=== PATIENT | female | born 1980 | race Caucasian/White ===

== ENCOUNTER 2017-08-07 12:27 | Inpatient (IN) | payer OTHER ==
[2017-08-07] MEDS ORDERED: Butorphanol 1 MG/ML SDV IVPUSH PRN (13:08)
[2017-08-07] MEDS ORDERED: Misoprostol 200 MCG Tab PO PRN (13:08)
[2017-08-07] MEDS ORDERED: Sodium Chloride 0.9% 10 ML Syringe FLUSH PRN (13:08)
[2017-08-07] MEDS ORDERED: Methylergonovine 0.2 MG/1 ML Amp IM PRN (13:08)
[2017-08-07] MEDS ORDERED: Sodium Chloride 0.9% 2.5 ML Syringe FLUSH PRN (13:08)
[2017-08-07] MEDS ORDERED: Nalbuphine 10 MG/1 ML Vial IVPUSH PRN (13:08)
[2017-08-07] MEDS ORDERED: Water For Irrigation,Sterile 1,000 ML Container IRR PRN (13:08)
[2017-08-07] MEDS ORDERED: Carboprost Tromethamine 250 MCG/1 ML Amp IM PRN (13:08)
[2017-08-07] MEDS ORDERED: Lidocaine 1% 50 ML MDV INJECT PRN (13:08)
[2017-08-07] MEDS ORDERED: Terbutaline 1 MG/ML SDV SUBCUT PRN (13:11)
[2017-08-07] MEDS ORDERED: Oxytocin/0.9 % Sodium Chloride 30 UNIT/500 ML BAG IV SCH ×2 (13:15)
[2017-08-07] MEDS: Lactated Ringers 1,000 ML IV SCH ×2 (13:47→17:47)
[2017-08-07] MEDS ORDERED: Ropivacaine HCl/PF 100 ML ONE (17:23)
[2017-08-07] MEDS ORDERED: fentaNYL 100 MCG/2 ML SDV ONE (17:23)
--- NOTE | 2017-08-07 17:52 | PCM.PREANE ---
Preanesthetic Assessment - Anesthesia/Transfusion/Family Hx Anesthesia History: Prior Anesthesia Without Reaction - Review of Systems General: No Symptoms Pulmonary: No Symptoms Cardiovascular: No Symptoms Gastrointestinal: No Symptoms Neurological: No Symptoms Other: Reports: None - Physical Assessment ASA Class: 2 Mental Status: Alert & Oriented x3 Airway Class: Mallampati = 2 Dentition: Reports: Normal Dentition Thyro-Mental Finger Breadths: 3 Mouth Opening Finger Breadths: 3 ROM/Head Extension: Full Lungs: Clear to Auscultation, Normal Respiratory Effort Cardiovascular: Regular Rate, Regular Rhythm - Lab Values: Laboratory Last Values WBC 7.63 K/uL (4.0-11.0) 08/07/17 13: RBC 4.29 M/uL (4.30-5.90) L 08/07/17 13: Hgb 12.0 g/dL (12.0-16.0) 08/07/17 13:26 Hct 36.3 % (36.0-46.0) 08/07/17 13: MCV 84.6 fL (80.0-98.0) 08/07/17 13:26 MCH 28.0 pg (27.0-32.0) 08/07/17 13: MCHC 33.1 g/dL (31.0-37.0) 08/07/17 13:26 RDW Std Deviation 45.2 fl (28.0-62.0) 08/07/17 13:26 RDW Coeff of Peyman 15 % (11.0-15.0) 08/07/17 13:26 Plt Count 137 K/uL (150-400) L 08/07/17 13:26 MPV 10.20 fL (7.40-12.00) 08/07/17 13:26 Nucleated RBC % 0.0 /100WBC 08/07/17 13:26 Nucleated RBCs # 0 K/uL 08/07/17 13:26 POC Glucose 58 mg/dL (60-110) L 08/07/17 16:30 Blood Type O POSITIVE 08/07/17 13:26 Antibody Screen NEGATIVE 08/07/17 13:26 - Allergies Allergies/Adverse Reactions: Allergies Allergy/AdvReac Type Severity Reaction Status Date / Time No Known Allergies Allergy Verified 10/24/15 08:11 - Acknowledgements Anesthesia Type Planned: Epidural Pt an Appropriate Candidate for the Planned Anesthesia: Yes Alternatives and Risks of Anesthesia Discussed w Pt/Guardian: Yes Pt/Guardian Understands and Agrees with Anesthesia Plan: Yes PreAnesthesia Questionnaire HEENT History: Reports: None Cardiovascular History: Reports: None Respiratory History: Reports: None Gastrointestinal History: Reports: GERD, Irritable Bowel Syndrome Genitourinary History: Reports: None MEETING FACILITATOR History: Reports: : 5 Para: 3 LMP (Approximate): Musculoskeletal History: Reports: None Neurological History: Reports: None Psychiatric History: Reports: Anxiety, Depression Endocrine/Metabolic History: Reports: Obesity/BMI 30+ Hematologic History: Reports: None Immunologic History: Reports: None Oncologic (Cancer) History: Reports: None Dermatologic History: Reports: None - Infectious Disease History Infectious Disease History: Reports: Chicken Pox - Past Surgical History GI Surgical History: Reports: Cholecystectomy - SUBSTANCE USE Smoking Status *Q: Never Smoker Second Hand Smoke Exposure: No Recreational Drug Use History: No - HOME MEDS Home Medications: Home Meds Gerd Med 10/24/15 [History] buPROPion [Wellbutrin] 0 mg PO DAILY 10/24/15 [History] - CURRENT (IN HOUSE) MEDS Current Meds: Current Medications Butorphanol Tartrate (Stadol) 1 mg IVPUSH Q1H PRN PRN Reason: Pain Carboprost Tromethamine (Hemabate Ds) 250 mcg IM ASDIRECTED PRN PRN Reason: Post Hemorrhage Lactated Ringer's (Ringers, Lactated) 1,000 mls @ 150 mls/hr IV ASDIRECTED TERRANCE Last Admin: 08/07/17 17:47 Dose: 999 mls/hr Oxytocin/Sodium Chloride (Oxytocin 30 Unit/500 Ml-Ns) 30 unit in 500 mls @ 999 mls/hr IV TITRATE TERRANCE Oxytocin/Sodium Chloride (Oxytocin 30 Unit/500 Ml-Ns) 30 unit in 500 mls @ 2 mls/hr IV TITRATE TERRANCE; 2 MUNITS/MIN PRN Reason: Protocol Last Titration: 08/07/17 16:15 Dose: 4 munits/min, 4 mls/hr Lidocaine HCl (Xylocaine 1%) 50 ml INJECT .ONCE PRN PRN Reason: Laceration repair Methylergonovine Maleate (Methergine) 0.2 mg IM ASDIRECTED PRN PRN Reason: Post Hemorrhage Misoprostol (Cytotec) 200 mcg PO .ONCE PRN PRN Reason: Post Hemorrhage Nalbuphine HCl (Nubain) 10 mg IVPUSH Q1H PRN PRN Reason: Pain (severe 7-10) Sodium Chloride (Saline Flush) 10 ml FLUSH ASDIRECTED PRN PRN Reason: Keep Vein Open Sodium Chloride (Saline Flush) 2.5 ml FLUSH ASDIRECTED PRN PRN Reason: Keep Vein Open Sterile Water (Sterile Water For Irrigation) 1,000 ml IRR ASDIRECTED PRN PRN Reason: delivery Terbutaline Sulfate (Brethine) 0.25 mg SUBCUT ASDIRECTED PRN PRN Reason: Tacysystole Discontinued Medications Fentanyl (Sublimaze) Confirm Administered Dose 100 mcg .ROUTE .STK-MED ONE Stop: 08/07/17 17:24 Ropivacaine (Naropin 0.2%) Confirm Administered Dose 100 mls @ as directed .ROUTE .STK-MED ONE Stop: 08/07/17 17:24
[2017-08-08] MEDS ORDERED: Ondansetron 4 MG/2 ML SDV ONE ×2 (00:19→05:43)
[2017-08-08] MEDS ORDERED: Ondansetron 4 MG/2 ML SDV IVPUSH ONE (00:21)
[2017-08-08] MEDS ORDERED: Ropivacaine HCl/PF 100 ML ONE (01:56)
[2017-08-08] MEDS ORDERED: Bupivacaine 0.25% 10 ML SDV ONE (01:59)
[2017-08-08] MEDS ORDERED: Bupivacaine 0.5% 10 ML SDV ONE (05:29)
[2017-08-08] MEDS: Lactated Ringers 1,000 ML IV SCH ×3 (05:33→16:33)
[2017-08-08] MEDS ORDERED: Oxytocin 10 Units/1 ML SDV ONE (05:43)
[2017-08-08] MEDS ORDERED: Morphine PF 10 MG/10 ML SDV ONE (05:43)
[2017-08-08] MEDS ORDERED: Metoclopramide 10 MG/2 ML SDV ONE (05:46)
[2017-08-08] MEDS ORDERED: ePHEDrine 50 MG/ML SDV ONE (05:49)
[2017-08-08] MEDS ORDERED: fentaNYL 100 MCG/2 ML SDV ONE (05:54)
[2017-08-08] MEDS ORDERED: Phenylephrine/Normal Saline 100 MCG/ML 10 ML Syringe ONE (06:06)
[2017-08-08] MEDS ORDERED: Octyl 2-Cyanoacrylate 1 Tube TOP ONE (06:31)
--- NOTE | 2017-08-08 06:39 | PCM.OPNOTE ---
- General Post-Op/Procedure Note Date of Surgery/Procedure: 08/08/17 Operative Procedure(s): primary low transverse Findings: liveborn male 05/22 3670 grams, normal pelvis Pre Op Diagnosis: 39 weeks gestational diabetes A1, arrest of descent Post-Op Diagnosis: Same Anesthesia Technique: Epidural Primary Surgeon: Erinn Barton Anesthesia Provider: Colby Sweet Change House Attendant: Haresh Chavis Fluid Replacement, Intraop: 2,000 EBL in mLs: 1,000 Complications: None Known Condition: Good
[2017-08-08] MEDS ORDERED: Bisacodyl 10 MG Supp RECTAL PRN (06:40)
[2017-08-08] MEDS ORDERED: Ondansetron 4 MG/2 ML SDV IVPUSH PRN (06:40)
[2017-08-08] MEDS ORDERED: diphenhydrAMINE 50 MG/ML SDV IVPUSH PRN ×2 (06:40→06:48)
[2017-08-08] MEDS ORDERED: Acetaminophen/oxyCODONE 325-5 MG Tab PO PRN (06:40)
[2017-08-08] MEDS ORDERED: Lanolin 100% Cream 7 GM Tube TOP PRN (06:40)
[2017-08-08] MEDS ORDERED: Nalbuphine 10 MG/1 ML Vial IVPUSH PRN (06:48)
[2017-08-08] MEDS ORDERED: Naloxone 0.4 MG/ML Syringe IVPUSH PRN (06:48)
[2017-08-08] MEDS ORDERED: fentaNYL 100 MCG/2 ML SDV IVPUSH PRN (06:49)
--- NOTE | 2017-08-08 07:32 | OR ---
SURGEON: Erinn Barton M.D. DATE OF PROCEDURE: 08/08/2017 PREOPERATIVE DIAGNOSES: Thirty-nine week intrauterine , gestational diabetes, arrest of descent. POSTOPERATIVE DIAGNOSES: Thirty-nine week intrauterine , gestational diabetes, arrest of descent. PROCEDURE: Primary low transverse section. ANESTHESIA: Epidural. EBL: 1000 mL. FLUIDS: 2000 mL crystalloid. FINDINGS: Liveborn male, score 8 and 9, weighing 3670 g. Head was deflexed, transverse presentation with arrest of descent. Normal appearing uterus, tubes, and ovaries were identified. COMPLICATIONS: None known. DISPOSITION: Stable to recovery. BRIEF HISTORY: This is a 36-year-old female, she is G5, P 3-0-1-3. She presents for induction of labor due to advanced maternal age and gestational diabetes, diet controlled. Estimated weight of 3700 g. Otherwise, uncomplicated care. She presented to Labor and Delivery. She was started on Pitocin, when she was 3 cm dilated. The artificial rupture of membranes was performed. She received an epidural for pain control prior to rupture of membranes. Clear fluid was noted. She had category 1 heart tones throughout labor with some episodes of category 2 related to either early or late decelerations but always with good variability. She progressed to complete and pushed over a two-hour time period. Over the two-hour time period of pushing, there was no descent of the head. On examination, the head was noted to be deflexed and was felt to be occiput posterior. Discussion was held regarding continued attempt at pushing versus proceeding with a primary low transverse delivery with risks including bleeding, infection, injury to bowel, bladder, blood vessels, ureters, other organs, risk of thromboembolic event. Understanding all these risks, she does desire to proceed with a primary low transverse delivery. DESCRIPTION OF PROCEDURE: With the patient in left tilt position under adequate epidural analgesia, the abdomen was prepped with chlorhexidine and draped in the usual fashion for abdominal surgery. SCDs were in place. Rodriguez catheter had been placed. An appropriate time-out was held. After documentation of adequate analgesia, a transverse curvilinear incision was made 2 cm cephalad from the pubic symphysis and carried through the subcutaneous tissue to the fascia which was scored transversely in the midline. The fascial incision was extended laterally using curved Brunner scissors. The fascia was elevated from the underlying rectus muscle using sharp and blunt dissection. The rectus muscles were bluntly in the midline. A finger was used to enter the peritoneal cavity. This incision was extended using blunt dissection. The Gerry O retractor was placed into the abdominal cavity, and the visceroperitoneum over the lower uterine segment was incised to develop an adequate bladder flap. A transverse curvilinear incision was made over the lower uterine segment with a scalpel and a finger was used to enter the amniotic cavity. Clear fluid was noted. The head was elevated from the pelvis and delivered via the uterine incision. The remainder of the 's body was delivered without any difficulty. The cord was clamped x2 and cut, and the infant was handed to the nurse in attendance at delivery. The was a liveborn male, score 8 and 9, weighing 3670 g. Cord blood was collected for cord ABGs as well as routine cord blood sampling. The placenta was removed by manual extraction. The uterus was cleaned with a dry laparotomy tape. The area was bleeding from the left uterine artery that was controlled with [id number] suture of 0 Polysorb. The uterine incision was then closed with a running lock suture of 0 Polysorb followed by an imbricating layer of 0 Polysorb. Three [id number] sutures were placed across the incision line for complete hemostasis. There was also an area of bleeding from a venous structure on the bladder peritoneum which was carefully isolated and tagged with a hemostat and then cauterized. The uterus and uterine incision were carefully inspected. They were completely hemostatic. The pericolic gutters and posterior cul-de-sac were cleaned with wet laparotomy tape. The tubes and ovaries were inspected and were normal. The incision was again carefully inspected and was hemostatic. The Gerry O retractor was removed. Final inspection revealed one additional area of bleeding in the midline which was controlled with [id number] suture. Further inspection revealed the uterine incision to be completely hemostatic with particular attention to the left lateral aspect. The rectus muscle and peritoneum were then loosely approximated in the midline using a running mattress suture of 0 Polysorb. The posterior aspect of the fascia was inspected and was hemostatic. The fascial incision was closed with a running suture of 0 Polysorb. Subcutaneous tissue was irrigated. Any areas of bleeding that were noted were cauterized. The skin was closed with a running subcuticular suture of 2-0 Polysorb and skin glue. Final sponge, needle, instrument counts were reported as correct. There were no known complications. The patient was transferred to recovery in good condition. MAKSIM PADGETT /[id number]
[2017-08-08] MEDS ORDERED: Acetaminophen 1,000 MG in Premix Bag 1 BAG IV ONE (10:35)
[2017-08-08] MEDS: Ketorolac 30 MG/ML SDV IVPUSH PRN (16:54)
[2017-08-08] MEDS: Docusate Sodium 100 MG Cap PO SCH ×2 (20:08→21:17)
[2017-08-09] MEDS: Ketorolac 30 MG/ML SDV IVPUSH PRN (04:06)
[2017-08-09 05:41] LABS: CHLORIDE,CL 106 mmol/L (98-110); SODIUM,NA 133 mmol/L (136-146)
--- NOTE | 2017-08-09 08:15 | PCM.PNPP ---
<Anh Molina - Last Filed: 08/09/17 08:26> - General Info Date of Service: 08/09/17 Functional Status: Reports: Pain Controlled, Tolerating Diet, Ambulating, Urinating (catheter removed this morning) - Review of Systems General: Denies: Fever, Fatigue, Other Pulmonary: Denies: Shortness of Breath, Pleuritic Chest Pain, Cough Cardiovascular: Denies: Chest Pain, Palpitations, Dyspnea on Exertion Gastrointestinal: Denies: Abdominal Pain Genitourinary: Denies: Dysuria Psychiatric: Reports: No Symptoms - General Info Date of Service: 08/09/17 - Patient Data Vital Signs - Most Recent: Last Vital Signs Temp 37.0 C 08/09/17 00:00 Pulse 75 08/09/17 04:11 Resp 16 08/09/17 06:20 BP 107/62 08/09/17 04:11 Pulse Ox 100 08/09/17 06:20 Weight - Most Recent: 85.729 kg I&O - Last 24 Hours: Intake & Output 08/08/17 08/09/17 08/09/17 22:59 06:59 14:59 Output Total 950 450 Balance -950 -450 Lab Results - Last 24 Hours: Laboratory Results - last 24 hr 08/08/17 08/09/17 08/09/17 Range/Units 10:05 05:05 05:05 Hgb 7.8 L (12.0-16.0) g/dL Hct 23.6 L (36.0-46.0) % Sodium 133 L (136-146) mmol/L Potassium 3.9 (3.5-5.1) mmol/L Chloride 106 (98-110) mmol/L Carbon Dioxide 21 (21-31) mmol/L BUN 11 (6.0-23.0) mg/dL Creatinine 0.6 (0.6-1.5) mg/dL Est Cr Clr Drug Dosing 113.01 mL/min Estimated GFR (MDRD) > 60.0 ml/min Glucose 96 (60-110) mg/dL POC Glucose 191 H (60-110) mg/dL Calcium 8.3 L (8.8-10.8) mg/dL Med Orders - Current: Current Medications Bisacodyl (Dulcolax) 10 mg RECTAL .ONCE PRN PRN Reason: Constipation Diphenhydramine HCl (Benadryl) 25 mg IVPUSH Q6H PRN PRN Reason: Itching or Nausea Docusate Sodium (Colace) 100 mg PO BID [facility] Last Admin: 08/08/17 21:17 Dose: 100 mg Emollient Ointment (Lansinoh Hpa) 0 gm TOP ASDIRECTED PRN PRN Reason: Sore Nipples Lactated Ringer's (Ringers, Lactated) 1,000 mls @ 125 mls/hr IV ASDIRECTED [facility] Last Admin: 08/08/17 16:33 Dose: 125 mls/hr Ibuprofen (Motrin) 800 mg PO Q8H PRN PRN Reason: mild pain or fever Ketorolac Tromethamine (Toradol) 30 mg IVPUSH Q6H PRN PRN Reason: Pain Stop: 08/09/17 16:00 Last Admin: 08/09/17 04:06 Dose: 30 mg Ondansetron HCl (Zofran) 4 mg IVPUSH Q4H PRN PRN Reason: Nausea/Vomiting Oxycodone/Acetaminophen (Percocet 325-5 Mg) 1 tab PO Q4H PRN PRN Reason: Pain (moderate 4-6) Oxycodone/Acetaminophen (Percocet 325-5 Mg) 2 tab PO Q4H PRN PRN Reason: Pain (moderate 4-6) Discontinued Medications Bupivacaine HCl (Sensorcaine-Mpf 0.25%) Confirm Administered Dose 10 ml .ROUTE .STK-MED ONE Stop: 08/08/17 02:00 Bupivacaine HCl (Sensorcaine-Mpf 0.5%) Confirm Administered Dose 20 ml .ROUTE .STK-MED ONE Stop: 08/08/17 05:30 Butorphanol Tartrate (Stadol) 1 mg IVPUSH Q1H PRN PRN Reason: Pain Carboprost Tromethamine (Hemabate Ds) 250 mcg IM ASDIRECTED PRN PRN Reason: Post Hemorrhage Diphenhydramine HCl (Benadryl) 25 mg IVPUSH Q4H PRN PRN Reason: Itching Stop: 08/09/17 06:48 Ephedrine Sulfate (Ephedrine Sulfate) Confirm Administered Dose 50 mg .ROUTE .STK-MED ONE Stop: 08/08/17 05:50 Fentanyl (Sublimaze) Confirm Administered Dose 100 mcg .ROUTE .STK-MED ONE Stop: 08/07/17 17:24 Fentanyl (Sublimaze) Confirm Administered Dose 100 mcg .ROUTE .STK-MED ONE Stop: 08/08/17 05:55 Fentanyl (Sublimaze) 50 mcg IVPUSH Q45M PRN PRN Reason: Pain (severe 7-10) Stop: 08/09/17 06:49 Lactated Ringer's (Ringers, Lactated) 1,000 mls @ 150 mls/hr IV ASDIRECTED TERRANCE Last Admin: 08/08/17 05:33 Dose: 999 mls/hr Oxytocin/Sodium Chloride (Oxytocin 30 Unit/500 Ml-Ns) 30 unit in 500 mls @ 999 mls/hr IV TITRATE TERRANCE Oxytocin/Sodium Chloride (Oxytocin 30 Unit/500 Ml-Ns) 30 unit in 500 mls @ 2 mls/hr IV TITRATE TERRANCE; 2 MUNITS/MIN PRN Reason: Protocol Last Titration: 08/08/17 04:25 Dose: 20 munits/min, 20 mls/hr Ropivacaine (Naropin 0.2%) Confirm Administered Dose 100 mls @ as directed .ROUTE .STK-MED ONE Stop: 08/07/17 17:24 Ropivacaine (Naropin 0.2%) Confirm Administered Dose 100 mls @ as directed .ROUTE .STK-MED ONE Stop: 08/08/17 01:57 Acetaminophen 1,000 mg/ Premix 100 mls @ 400 mls/hr IV NOW ONE Stop: 08/08/17 10:49 Last Admin: 08/08/17 10:43 Dose: 400 mls/hr Lidocaine HCl (Xylocaine 1%) 50 ml INJECT .ONCE PRN PRN Reason: Laceration repair Methylergonovine Maleate (Methergine) 0.2 mg IM ASDIRECTED PRN PRN Reason: Post Hemorrhage Metoclopramide HCl (Reglan) Confirm Administered Dose 10 mg .ROUTE .STK-MED ONE Stop: 08/08/17 05:47 Misoprostol (Cytotec) 200 mcg PO .ONCE PRN PRN Reason: Post Hemorrhage Morphine Sulfate (Duramorph Pf) Confirm Administered Dose 10 mg .ROUTE .STK-MED ONE Stop: 08/08/17 05:44 Nalbuphine HCl (Nubain) 10 mg IVPUSH Q1H PRN PRN Reason: Pain (severe 7-10) Nalbuphine HCl (Nubain) 5 mg IVPUSH Q3H PRN PRN Reason: Pruritis Stop: 08/09/17 06:48 Naloxone HCl (Narcan) 0.1 mg IVPUSH ONETIME PRN PRN Reason: Respiratory Depression Stop: 08/09/17 06:48 Ondansetron HCl (Zofran) Confirm Administered Dose 4 mg .ROUTE .STK-MED ONE Stop: 08/08/17 00:20 Ondansetron HCl (Zofran) 4 mg IVPUSH ONETIME ONE Stop: 08/08/17 00:22 Last Admin: 08/08/17 00:23 Dose: 4 mg Ondansetron HCl (Zofran) Confirm Administered Dose 4 mg .ROUTE .STK-MED ONE Stop: 08/08/17 05:44 Oxytocin (Pitocin) Confirm Administered Dose 20 unit .ROUTE .STK-MED ONE Stop: 08/08/17 05:44 Phenylephrine HCl (Phenylephrine In Ns 100 Mcg/Ml) Confirm Administered Dose 1 mg .ROUTE .STK-MED ONE Stop: 08/08/17 06:07 Sodium Chloride (Saline Flush) 10 ml FLUSH ASDIRECTED PRN PRN Reason: Keep Vein Open Sodium Chloride (Saline Flush) 2.5 ml FLUSH ASDIRECTED PRN PRN Reason: Keep Vein Open Sterile Water (Sterile Water For Irrigation) 1,000 ml IRR ASDIRECTED PRN PRN Reason: delivery Terbutaline Sulfate (Brethine) 0.25 mg SUBCUT ASDIRECTED PRN PRN Reason: Tacysystole - Interaction Infant Disposition, : [place] in Room with Family Interaction: Holding Infant Infant Feeding: Attempted ; Nursed Fair/Poor Support Person: - Recovery Exam Fundal Tone: Firm Fundal Level: At Umbilicus Fundal Placement: Midline Lochia Amount: Scant Lochia Color: Rubra/Red Perineum Description: Intact, Minimal Bruising/Swelling Bladder Status: Indwelling Catheter in Place Urinary Elimination: Indwelling Catheter - Exam General: Alert, Oriented Lungs: Clear to Auscultation, Normal Respiratory Effort Cardiovascular: Regular Rate, Regular Rhythm GI/Abdominal Exam: Normal Bowel Sounds, Soft, Non-Tender, No Organomegaly, No Distention, No Mass, Pelvis Stable Extremities: Normal Inspection, Normal Range of Motion, Non-Tender, Normal Capillary Refill, Pedal Edema (trace) - Problem List & Annotations (1) delivery delivered SNOMED Code(s): 305318078 Code(s): O82 - ENCOUNTER FOR DELIVERY WITHOUT INDICATION Status: Acute Current Visit: Yes - Problem List Review Problem List Initiated/Reviewed/Updated: Yes - Assessment Assessment:: POD#1 from [facility] due to arrest of decent. Minimal pain and lochia. Breast feeding is going well. Encouraged to shower and ambulate halls. Anticipate discharge home tomorrow. - Plan Plan:: Continue routine post-op cares. <Erinn Barton - Last Filed: 08/09/17 16:25> - Patient Data Vital Signs - Most Recent: Last Vital Signs Temp 36.8 C 08/09/17 16:00 Pulse 95 08/09/17 16:00 Resp 18 08/09/17 16:00 BP 111/57 L 08/09/17 16:00 Pulse Ox 97 08/09/17 16:00 I&O - Last 24 Hours: Intake & Output 08/09/17 08/09/17 08/09/17 06:59 14:59 22:59 Output Total 450 250 Balance -450 -250 Lab Results - Last 24 Hours: Laboratory Results - last 24 hr 08/09/17 08/09/17 Range/Units 05:05 05:05 Hgb 7.8 L (12.0-16.0) g/dL Hct 23.6 L (36.0-46.0) % Sodium 133 L (136-146) mmol/L Potassium 3.9 (3.5-5.1) mmol/L Chloride 106 (98-110) mmol/L Carbon Dioxide 21 (21-31) mmol/L BUN 11 (6.0-23.0) mg/dL Creatinine 0.6 (0.6-1.5) mg/dL Est Cr Clr Drug Dosing 113.01 mL/min Estimated GFR (MDRD) > 60.0 ml/min Glucose 96 (60-110) mg/dL Calcium 8.3 L (8.8-10.8) mg/dL Med Orders - Current: Current Medications Bisacodyl (Dulcolax) 10 mg RECTAL .ONCE PRN PRN Reason: Constipation Diphenhydramine HCl (Benadryl) 25 mg IVPUSH Q6H PRN PRN Reason: Itching or Nausea Docusate Sodium (Colace) 100 mg PO BID [facility] Last Admin: 08/09/17 08:41 Dose: 100 mg Emollient Ointment (Lansinoh Hpa) 0 gm TOP ASDIRECTED PRN PRN Reason: Sore Nipples Lactated Ringer's (Ringers, Lactated) 1,000 mls @ 125 mls/hr IV ASDIRECTED [facility] Last Admin: 08/08/17 16:33 Dose: 125 mls/hr Ibuprofen (Motrin) 800 mg PO Q8H PRN PRN Reason: mild pain or fever Last Admin: 08/09/17 12:46 Dose: 800 mg Ondansetron HCl (Zofran) 4 mg IVPUSH Q4H PRN PRN Reason: Nausea/Vomiting Oxycodone/Acetaminophen (Percocet 325-5 Mg) 1 tab PO Q4H PRN PRN Reason: Pain (moderate 4-6) Last Admin: 08/09/17 14:30 Dose: 1 tab Oxycodone/Acetaminophen (Percocet 325-5 Mg) 2 tab PO Q4H PRN PRN Reason: Pain (moderate 4-6) Discontinued Medications Bupivacaine HCl (Sensorcaine-Mpf 0.25%) Confirm Administered Dose 10 ml .ROUTE .STK-MED ONE Stop: 08/08/17 02:00 Bupivacaine HCl (Sensorcaine-Mpf 0.5%) Confirm Administered Dose 20 ml .ROUTE .STK-MED ONE Stop: 08/08/17 05:30 Butorphanol Tartrate (Stadol) 1 mg IVPUSH Q1H PRN PRN Reason: Pain Carboprost Tromethamine (Hemabate Ds) 250 mcg IM ASDIRECTED PRN PRN Reason: Post Hemorrhage Diphenhydramine HCl (Benadryl) 25 mg IVPUSH Q4H PRN PRN Reason: Itching Stop: 08/09/17 06:48 Ephedrine Sulfate (Ephedrine Sulfate) Confirm Administered Dose 50 mg .ROUTE .STK-MED ONE Stop: 08/08/17 05:50 Fentanyl (Sublimaze) Confirm Administered Dose 100 mcg .ROUTE .STK-MED ONE Stop: 08/07/17 17:24 Fentanyl (Sublimaze) Confirm Administered Dose 100 mcg .ROUTE .STK-MED ONE Stop: 08/08/17 05:55 Fentanyl (Sublimaze) 50 mcg IVPUSH Q45M PRN PRN Reason: Pain (severe 7-10) Stop: 08/09/17 06:49 Lactated Ringer's (Ringers, Lactated) 1,000 mls @ 150 mls/hr IV ASDIRECTED TERRANCE Last Admin: 08/08/17 05:33 Dose: 999 mls/hr Oxytocin/Sodium Chloride (Oxytocin 30 Unit/500 Ml-Ns) 30 unit in 500 mls @ 999 mls/hr IV TITRATE TERRANCE Oxytocin/Sodium Chloride (Oxytocin 30 Unit/500 Ml-Ns) 30 unit in 500 mls @ 2 mls/hr IV TITRATE TERRANCE; 2 MUNITS/MIN PRN Reason: Protocol Last Titration: 08/08/17 04:25 Dose: 20 munits/min, 20 mls/hr Ropivacaine (Naropin 0.2%) Confirm Administered Dose 100 mls @ as directed .ROUTE .STK-MED ONE Stop: 08/07/17 17:24 Ropivacaine (Naropin 0.2%) Confirm Administered Dose 100 mls @ as directed .ROUTE .STK-MED ONE Stop: 08/08/17 01:57 Acetaminophen 1,000 mg/ Premix 100 mls @ 400 mls/hr IV NOW ONE Stop: 08/08/17 10:49 Last Admin: 08/08/17 10:43 Dose: 400 mls/hr Ketorolac Tromethamine (Toradol) 30 mg IVPUSH Q6H PRN PRN Reason: Pain Stop: 08/09/17 16:00 Last Admin: 08/09/17 04:06 Dose: 30 mg Lidocaine HCl (Xylocaine 1%) 50 ml INJECT .ONCE PRN PRN Reason: Laceration repair Methylergonovine Maleate (Methergine) 0.2 mg IM ASDIRECTED PRN PRN Reason: Post Hemorrhage Metoclopramide HCl (Reglan) Confirm Administered Dose 10 mg .ROUTE .STK-MED ONE Stop: 08/08/17 05:47 Misoprostol (Cytotec) 200 mcg PO .ONCE PRN PRN Reason: Post Hemorrhage Morphine Sulfate (Duramorph Pf) Confirm Administered Dose 10 mg .ROUTE .STK-MED ONE Stop: 08/08/17 05:44 Nalbuphine HCl (Nubain) 10 mg IVPUSH Q1H PRN PRN Reason: Pain (severe 7-10) Nalbuphine HCl (Nubain) 5 mg IVPUSH Q3H PRN PRN Reason: Pruritis Stop: 08/09/17 06:48 Naloxone HCl (Narcan) 0.1 mg IVPUSH ONETIME PRN PRN Reason: Respiratory Depression Stop: 08/09/17 06:48 Ondansetron HCl (Zofran) Confirm Administered Dose 4 mg .ROUTE .STK-MED ONE Stop: 08/08/17 00:20 Ondansetron HCl (Zofran) 4 mg IVPUSH ONETIME ONE Stop: 08/08/17 00:22 Last Admin: 08/08/17 00:23 Dose: 4 mg Ondansetron HCl (Zofran) Confirm Administered Dose 4 mg .ROUTE .STK-MED ONE Stop: 08/08/17 05:44 Oxytocin (Pitocin) Confirm Administered Dose 20 unit .ROUTE .STK-MED ONE Stop: 08/08/17 05:44 Phenylephrine HCl (Phenylephrine In Ns 100 Mcg/Ml) Confirm Administered Dose 1 mg .ROUTE .STK-MED ONE Stop: 08/08/17 06:07 Sodium Chloride (Saline Flush) 10 ml FLUSH ASDIRECTED PRN PRN Reason: Keep Vein Open Sodium Chloride (Saline Flush) 2.5 ml FLUSH ASDIRECTED PRN PRN Reason: Keep Vein Open Sterile Water (Sterile Water For Irrigation) 1,000 ml IRR ASDIRECTED PRN PRN Reason: delivery Terbutaline Sulfate (Brethine) 0.25 mg SUBCUT ASDIRECTED PRN PRN Reason: Tacysystole - My Orders Last 24 Hours: My Active Orders 08/10/17 05:11 BMP [BASIC METABOLIC PANEL,BMP] [CHEM] AM - Plan Plan:: Patient see and examined and agree with above.
[2017-08-09] MEDS: Acetaminophen/oxyCODONE 325-5 MG Tab PO PRN ×4 (08:41→23:10)
[2017-08-09] MEDS: Docusate Sodium 100 MG Cap PO SCH ×2 (08:41→22:55)
[2017-08-09] MEDS: Ibuprofen 800 MG Tab PO PRN (12:46)
[2017-08-10] MEDS: Ibuprofen 800 MG Tab PO PRN ×2 (02:25→11:24)
[2017-08-10] MEDS: Acetaminophen/oxyCODONE 325-5 MG Tab PO PRN ×2 (04:43→08:41)
[2017-08-10 06:27] LABS: CHLORIDE,CL 109 mmol/L (98-110); SODIUM,NA 137 mmol/L (136-146)
--- NOTE | 2017-08-10 07:33 | PCM.PNPP ---
- General Info Date of Service: 08/10/17 Admission Dx/Problem (Free Text): 36yo P4014 s/p [facility] for arrest of descent, POD2 Subjective Update: Patient wants to be back on her antidepressant , she has no suicidal ideations. but radha easily. she has family support at home Functional Status: Reports: Pain Controlled, Tolerating Diet, Ambulating, Urinating - Review of Systems HEENT: Reports: No Symptoms Pulmonary: Reports: No Symptoms Cardiovascular: Reports: No Symptoms Gastrointestinal: Reports: No Symptoms Genitourinary: Reports: No Symptoms Musculoskeletal: Reports: No Symptoms Skin: Reports: No Symptoms Neurological: Reports: No Symptoms Psychiatric: Reports: No Symptoms - General Info Date of Service: 08/10/17 - Patient Data Vital Signs - Most Recent: Last Vital Signs Temp 36.8 C 08/09/17 20:00 Pulse 98 08/09/17 20:00 Resp 15 08/09/17 20:00 BP 103/61 08/09/17 20:00 Pulse Ox 97 08/09/17 20:00 Weight - Most Recent: 85.729 kg Lab Results - Last 24 Hours: Laboratory Results - last 24 hr 08/10/17 Range/Units 05:41 Sodium 137 (136-146) mmol/L Potassium 3.7 (3.5-5.1) mmol/L Chloride 109 (98-110) mmol/L Carbon Dioxide 22 (21-31) mmol/L BUN 7 (6.0-23.0) mg/dL Creatinine 0.5 L (0.6-1.5) mg/dL Est Cr Clr Drug Dosing 135.61 mL/min Estimated GFR (MDRD) > 60.0 ml/min Glucose 91 (60-110) mg/dL Calcium 8.4 L (8.8-10.8) mg/dL Med Orders - Current: Current Medications Bisacodyl (Dulcolax) 10 mg RECTAL .ONCE PRN PRN Reason: Constipation Diphenhydramine HCl (Benadryl) 25 mg IVPUSH Q6H PRN PRN Reason: Itching or Nausea Docusate Sodium (Colace) 100 mg PO BID TERRANCE Last Admin: 08/09/17 22:55 Dose: 100 mg Emollient Ointment (Lansinoh Hpa) 0 gm TOP ASDIRECTED PRN PRN Reason: Sore Nipples Lactated Ringer's (Ringers, Lactated) 1,000 mls @ 125 mls/hr IV ASDIRECTED TERRANCE Last Admin: 08/08/17 16:33 Dose: 125 mls/hr Ibuprofen (Motrin) 800 mg PO Q8H PRN PRN Reason: mild pain or fever Last Admin: 08/10/17 02:25 Dose: 800 mg Ondansetron HCl (Zofran) 4 mg IVPUSH Q4H PRN PRN Reason: Nausea/Vomiting Oxycodone/Acetaminophen (Percocet 325-5 Mg) 1 tab PO Q4H PRN PRN Reason: Pain (moderate 4-6) Last Admin: 08/10/17 04:43 Dose: 1 tab Oxycodone/Acetaminophen (Percocet 325-5 Mg) 2 tab PO Q4H PRN PRN Reason: Pain (moderate 4-6) Discontinued Medications Bupivacaine HCl (Sensorcaine-Mpf 0.25%) Confirm Administered Dose 10 ml .ROUTE .STK-MED ONE Stop: 08/08/17 02:00 Bupivacaine HCl (Sensorcaine-Mpf 0.5%) Confirm Administered Dose 20 ml .ROUTE .STK-MED ONE Stop: 08/08/17 05:30 Butorphanol Tartrate (Stadol) 1 mg IVPUSH Q1H PRN PRN Reason: Pain Carboprost Tromethamine (Hemabate Ds) 250 mcg IM ASDIRECTED PRN PRN Reason: Post Hemorrhage Diphenhydramine HCl (Benadryl) 25 mg IVPUSH Q4H PRN PRN Reason: Itching Stop: 08/09/17 06:48 Ephedrine Sulfate (Ephedrine Sulfate) Confirm Administered Dose 50 mg .ROUTE .STK-MED ONE Stop: 08/08/17 05:50 Fentanyl (Sublimaze) Confirm Administered Dose 100 mcg .ROUTE .STK-MED ONE Stop: 08/07/17 17:24 Fentanyl (Sublimaze) Confirm Administered Dose 100 mcg .ROUTE .STK-MED ONE Stop: 08/08/17 05:55 Fentanyl (Sublimaze) 50 mcg IVPUSH Q45M PRN PRN Reason: Pain (severe 7-10) Stop: 08/09/17 06:49 Lactated Ringer's (Ringers, Lactated) 1,000 mls @ 150 mls/hr IV ASDIRECTED TERRANCE Last Admin: 08/08/17 05:33 Dose: 999 mls/hr Oxytocin/Sodium Chloride (Oxytocin 30 Unit/500 Ml-Ns) 30 unit in 500 mls @ 999 mls/hr IV TITRATE TERRANCE Oxytocin/Sodium Chloride (Oxytocin 30 Unit/500 Ml-Ns) 30 unit in 500 mls @ 2 mls/hr IV TITRATE TERRANCE; 2 MUNITS/MIN PRN Reason: Protocol Last Titration: 08/08/17 04:25 Dose: 20 munits/min, 20 mls/hr Ropivacaine (Naropin 0.2%) Confirm Administered Dose 100 mls @ as directed .ROUTE .STK-MED ONE Stop: 08/07/17 17:24 Ropivacaine (Naropin 0.2%) Confirm Administered Dose 100 mls @ as directed .ROUTE .STK-MED ONE Stop: 08/08/17 01:57 Acetaminophen 1,000 mg/ Premix 100 mls @ 400 mls/hr IV NOW ONE Stop: 08/08/17 10:49 Last Admin: 08/08/17 10:43 Dose: 400 mls/hr Ketorolac Tromethamine (Toradol) 30 mg IVPUSH Q6H PRN PRN Reason: Pain Stop: 08/09/17 16:00 Last Admin: 08/09/17 04:06 Dose: 30 mg Lidocaine HCl (Xylocaine 1%) 50 ml INJECT .ONCE PRN PRN Reason: Laceration repair Methylergonovine Maleate (Methergine) 0.2 mg IM ASDIRECTED PRN PRN Reason: Post Hemorrhage Metoclopramide HCl (Reglan) Confirm Administered Dose 10 mg .ROUTE .STK-MED ONE Stop: 08/08/17 05:47 Misoprostol (Cytotec) 200 mcg PO .ONCE PRN PRN Reason: Post Hemorrhage Morphine Sulfate (Duramorph Pf) Confirm Administered Dose 10 mg .ROUTE .STK-MED ONE Stop: 08/08/17 05:44 Nalbuphine HCl (Nubain) 10 mg IVPUSH Q1H PRN PRN Reason: Pain (severe 7-10) Nalbuphine HCl (Nubain) 5 mg IVPUSH Q3H PRN PRN Reason: Pruritis Stop: 08/09/17 06:48 Naloxone HCl (Narcan) 0.1 mg IVPUSH ONETIME PRN PRN Reason: Respiratory Depression Stop: 08/09/17 06:48 Ondansetron HCl (Zofran) Confirm Administered Dose 4 mg .ROUTE .STK-MED ONE Stop: 08/08/17 00:20 Ondansetron HCl (Zofran) 4 mg IVPUSH ONETIME ONE Stop: 08/08/17 00:22 Last Admin: 08/08/17 00:23 Dose: 4 mg Ondansetron HCl (Zofran) Confirm Administered Dose 4 mg .ROUTE .STK-MED ONE Stop: 08/08/17 05:44 Oxytocin (Pitocin) Confirm Administered Dose 20 unit .ROUTE .STK-MED ONE Stop: 08/08/17 05:44 Phenylephrine HCl (Phenylephrine In Ns 100 Mcg/Ml) Confirm Administered Dose 1 mg .ROUTE .STK-MED ONE Stop: 08/08/17 06:07 Sodium Chloride (Saline Flush) 10 ml FLUSH ASDIRECTED PRN PRN Reason: Keep Vein Open Sodium Chloride (Saline Flush) 2.5 ml FLUSH ASDIRECTED PRN PRN Reason: Keep Vein Open Sterile Water (Sterile Water For Irrigation) 1,000 ml IRR ASDIRECTED PRN PRN Reason: delivery Terbutaline Sulfate (Brethine) 0.25 mg SUBCUT ASDIRECTED PRN PRN Reason: Tacysystole - Interaction Disposition, : in Room with Family Infant Interaction: Holding Infant Feeding: Attempted ; Nursed Fair/Poor Support Person: - Recovery Exam Fundal Tone: Firm Fundal Level: 1 Fingerbreadths Below Umbilicus Fundal Placement: Midline Lochia Amount: Scant Lochia Color: Rubra/Red Perineum Description: Intact, Minimal Bruising/Swelling Episiotomy/Laceration: None Bladder Status: Voiding Urinary Elimination: Voided - Exam General: Alert, Oriented Lungs: Clear to Auscultation Cardiovascular: Regular Rate, Regular Rhythm GI/Abdominal Exam: Normal Bowel Sounds, Other (pfannelstiel skin incision c/d/i) Extremities: Normal Inspection - Problem List Review Problem List Initiated/Reviewed/Updated: Yes - Assessment Assessment:: 36 yo P4014 POD#2 from [facility] due to arrest of decent, hx of depression and anxiety - Plan Plan:: Regular diet Pain control D/C home today, she wants to go home Continue Start Wellbutrin .
[2017-08-10] MEDS: Docusate Sodium 100 MG Cap PO SCH (08:41)
[2017-08-10] MEDS: buPROPion 100 MG Tab PO SCH ×2 (08:41→11:26)
[2017-08-10 12:04] VITALS: BP 103/57
== END 2017-08-10 13:25 | disposition home or self-care (01) | DRG 766 ==
LOC: MW.OBCHECK 12:27 → MW.OB 12:27 → MW.OBCHECK 13:09 → MW.OB 13:09 → OBSVTOIN 08-08 05:52 → MW.OB 08-08 06:10
PROVIDERS: ADMIT Obstetrics & Gynecology; ATTEND Obstetrics & Gynecology
PROC: 10D00Z1 Extraction of Products of Conception, Low, Open Approach (ICD-10-PCS; principal; 2017-08-08)
PROC: 10907ZC Drainage of Amniotic Fluid, Therapeutic from Products of Conception, Via Natural or Artificial Opening (ICD-10-PCS; 2017-08-08)
DX: O24.420 Gestational diabetes mellitus in childbirth, diet controlled (principal); O62.1 Secondary uterine inertia; O09.523 Supervision of elderly multigravida, third trimester; Z3A.39 39 weeks gestation of pregnancy; Z37.0 Single live birth
CPT/HCPCS: 01967; 01968; 36415; 51702; 59025; 80048; 82962; 85014; 85018; 85027; 86850; 86900; 86901; A9270-GY; J1885; J2270; J2405; J2590; J2765; J2795; J3010; J7120

== ENCOUNTER 2018-03-26 19:31 | Emergency (ER) | payer OTHER ==
[2018-03-26 19:41] VITALS: BP 116/75
[2018-03-26] MEDS ORDERED: Sodium Chloride 0.9% 1,000 ML IV ONE (19:43)
--- NOTE | 2018-03-26 20:08 | EDM.PDOC ---
ED HPI GENERAL MEDICAL PROBLEM - General Chief Complaint: Cardiovascular Problem Stated Complaint: IRREGULAR HEART BEAT Time Seen by Provider: 03/26/18 19:57 - History of Present Illness INITIAL COMMENTS - FREE TEXT/NARRATIVE: HISTORY AND PHYSICAL: History of present illness: Patient 37-year-old female presents with her palpitations patient has had this intermittently and has been seen by private medical personnel who have been exploring this she has had a Holter monitor she is due for echocardiogram on Saturday. These episodes are unpredictable intermittent she has had some associated symptoms somewhat vague and somewhat equivocates regarding this. She denies nausea vomiting diaphoresis she equivocates regarding any associated chest pain this has not been regular or predictable Review of systems: As per history of present illness and below otherwise all systems reviewed and negative. Past medical history: As per history of present illness and as reviewed below otherwise noncontributory. Surgical history: As per history of present illness and as reviewed below otherwise noncontributory. Social history: No reported history of drug or alcohol abuse. Family history: As per history of present illness and as reviewed below otherwise noncontributory. Physical exam: HEENT: Atraumatic, normocephalic, pupils reactive, negative for conjunctival pallor or scleral icterus, mucous membranes moist, throat clear, neck supple, nontender, trachea midline. Lungs: Clear to auscultation, breath sounds equal bilaterally, chest nontender. Heart: S1S2, regular, negative for clicks, rubs, or JVD. Abdomen: Soft, nondistended, nontender. Negative for masses or hepatosplenomegaly. Negative for costovertebral tenderness. Pelvis: Stable nontender. Genitourinary: Deferred. Rectal: Deferred. Extremities: Atraumatic, negative for cords or calf pain. Neurovascular unremarkable. Neuro: Awake, alert, oriented. Cranial nerves II through XII unremarkable. Cerebellum unremarkable. Motor and sensory unremarkable throughout. Exam nonfocal. Diagnostics: CBC CMP troponin PT/INR chest x-ray EKG TSH Therapeutics: IV O2 monitor Impression: #1 palpitations Definitive disposition and diagnosis as appropriate pending reevaluation and review of above. - Related Data Allergies Allergy/AdvReac Type Severity Reaction Status Date / Time azithromycin [From Zithromax] Allergy Hives Verified 08/07/17 20:06 Home Meds: Home Meds buPROPion [Wellbutrin] 1 tab PO DAILY 10/24/15 [History] PNV95/Ferrous Fumarate/FA [ Vitamins Tablet] 1 tab PO DAILY 08/07/17 [ History] Pantoprazole Sodium [Protonix] 1 tab PO DAILY 08/07/17 [History] Acetaminophen/oxyCODONE [Percocet 325-5 MG] 1 tab PO Q6H PRN tablet 08/09/17 [ Rx] Past Medical History HEENT History: Reports: None Cardiovascular History: Reports: None Respiratory History: Reports: None Gastrointestinal History: Reports: GERD, Irritable Bowel Syndrome Genitourinary History: Reports: None REHAB CARE ASSISTANT History: Reports: Musculoskeletal History: Reports: None Neurological History: Reports: None Psychiatric History: Reports: Anxiety, Depression Endocrine/Metabolic History: Reports: Diabetes, Gestational, Obesity/BMI 30+ Hematologic History: Reports: None Immunologic History: Reports: None Oncologic (Cancer) History: Reports: None Dermatologic History: Reports: None - Infectious Disease History Infectious Disease History: Reports: Chicken Pox - Past Surgical History GI Surgical History: Reports: Cholecystectomy Social & Family History - Family History Family Medical History: Noncontributory - Tobacco Use Smoking Status *Q: Never Smoker - Caffeine Use Caffeine Use: Reports: Other Other Caffeine Use: very minimal - Recreational Drug Use Recreational Drug Use: No ED ROS GENERAL - Review of Systems Review Of Systems: ROS reveals no pertinent complaints other than HPI. ED EXAM, GENERAL - Physical Exam Exam: See Below (See dictation) Course - Vital Signs Last Recorded V/S: Last Vital Signs Temp 36.7 C 03/26/18 19:37 Pulse 75 03/26/18 19:37 Resp 20 03/26/18 19:37 BP 116/75 03/26/18 19:37 Pulse Ox 97 03/26/18 19:37 - Orders/Labs/Meds Orders: Active Orders 24 hr Category Date Time Status EKG Documentation Completion [RC] STAT Care 03/26/18 19:43 Active Chest 1V Frontal [CR] Stat Exams 03/26/18 20:45 Taken Labs: Laboratory Tests 03/26/18 03/26/18 Range/Units 19:50 19:50 WBC 5.47 (4.0-11.0) K/uL RBC 4.45 (4.30-5.90) M/uL Hgb 12.3 (12.0-16.0) g/dL Hct 37.3 (36.0-46.0) % MCV 83.8 (80.0-98.0) fL MCH 27.6 (27.0-32.0) pg MCHC 33.0 (31.0-37.0) g/dL RDW Std Deviation 44.1 (28.0-62.0) fl RDW Coeff of Peyman 14 (11.0-15.0) % Plt Count 233 (150-400) K/uL MPV 9.90 (7.40-12.00) fL Neut % (Auto) 38.5 L (48.0-80.0) % Lymph % (Auto) 50.3 H (16.0-40.0) % [place] % (Auto) 7.7 (0.0-15.0) % Eos % (Auto) 3.1 (0.0-7.0) % Baso % (Auto) 0.4 (0.0-1.5) % Neut # (Auto) 2.1 (1.4-5.7) K/uL Lymph # (Auto) 2.8 H (0.6-2.4) K/uL [place] # (Auto) 0.4 (0.0-0.8) K/uL Eos # (Auto) 0.2 (0.0-0.7) K/uL Baso # (Auto) 0.0 (0.0-0.1) K/uL Nucleated RBC % 0.0 /100WBC Nucleated RBCs # 0 K/uL Sodium 140 (136-145) mmol/L Potassium 3.7 (3.5-5.1) mmol/L Chloride 105 (98-107) mmol/L Carbon Dioxide 27.9 (21.0-32.0) mmol/L BUN 14 (7.0-18.0) mg/dL Creatinine 0.8 (0.6-1.0) mg/dL Est Cr Clr Drug Dosing 83.95 mL/min Estimated GFR (MDRD) > 60.0 ml/min Glucose 128 H (74-106) mg/dL Calcium 8.9 (8.5-10.1) mg/dL Total Bilirubin 0.2 (0.2-1.0) mg/dL AST 13 L (15-37) IU/L ALT 18 (14-63) IU/L Alkaline Phosphatase 67 (46-116) U/L Troponin I < 0.050 (0.000-0.056) ng/mL Total Protein 7.1 (6.4-8.2) g/dL Albumin 3.7 (3.4-5.0) g/dL Globulin 3.4 (2.0-3.5) g/dL Albumin/Globulin Ratio 1.1 L (1.3-2.8) TSH 3rd Generation 3.06 (0.36-3.74) uIU/mL Meds: Medications Discontinued Medications Generic Name Dose Route Start Last Admin Trade Name Freq PRN Reason Stop Dose Admin Sodium Chloride 1,000 mls @ 999 mls/hr 03/26/18 19:43 03/26/18 19:55 Normal Saline IV 03/26/18 20:43 999 mls/hr STAT ONE Administration Departure - Departure Time of Disposition: 21:14 Disposition: Home, Self-Care 01 Condition: Good Clinical Impression: Palpitations Referrals: PCP,None [Primary Care Provider] - Forms: ED Department Discharge Additional Instructions: The following information is given to patients seen in the emergency department who are being discharged to home. This information is to outline your options for follow-up care. We provide all patients seen in our emergency department with a follow-up referral. The need for follow-up, as well as the timing and circumstances, are variable depending upon the specifics of your emergency department visit. If you don't have a primary care physician on staff, we will provide you with a referral. We always advise you to contact your personal physician following an emergency department visit to inform them of the circumstance of the visit and for follow-up with them and/or the need for any referrals to a consulting specialist. The emergency department will also refer you to a specialist when appropriate. This referral assures that you have the opportunity for followup care with a specialist. All of these measure are taken in an effort to provide you with optimal care, which includes your followup. Under all circumstances we always encourage you to contact your private physician who remains a resource for coordinating your care. When calling for followup care, please make the office aware that this follow-up is from your recent emergency room visit. If for any reason you are refused follow-up, please contact the [facility] emergency department at and asked to speak to the emergency department charge nurse. Keep scheduled appointments with private medical doctor return as needed as discussed - My Orders Last 24 Hours: My Active Orders 03/26/18 20:45 Chest 1V Frontal [CR] Stat - Assessment/Plan Last 24 Hours: My Active Orders 03/26/18 20:45 Chest 1V Frontal [CR] Stat
[2018-03-26 20:41] LABS: CHLORIDE,CL 105 mmol/L (98-107); SODIUM,NA 140 mmol/L (136-145)
--- NOTE | 2018-03-27 08:32 | CR ---
EXAM DATE: 03/26/18 PATIENT'S AGE: 37 Patient: CESAR TRACY Facility: [place], [place] Site . Site : 1980 Study: XRay Chest [id number]/13/[id number] 9:15:06 PM Ordering Physician: Catalino Arcos Final Report: INDICATION: Irregular heartbeat. TECHNIQUE: One view. FINDINGS: One-view. No acute cardiopulmonary disease. Mild scoliosis to the left in the upper thoracic spine and to the right in a lower thoracic spine causes mild distortion of the cardiomediastinal silhouette. No pneumothorax or effusion. Dictated by Miguel Angel Carcamo MD @ Mar 26 2018 9:28PM (Electronic Signature) Report Signed by Proxy. CHRISTOPHER
== END 2018-03-26 22:25 | disposition home or self-care (01) ==
LOC: MW.ED 19:31
DX: R00.2 Palpitations (principal); Z88.1 Allergy status to other antibiotic agents; Z79.899 Other long term (current) drug therapy
CPT/HCPCS: 71045; 80053; 84443; 84484; 85025; 93005; 96360; 99285; J7040; 99283